=== PATIENT | female | born 1955 ===

== ENCOUNTER 2016-10-03 19:14 | Emergency (ER) | payer OTHER ==
[2016-10-03 19:26] VITALS: TEMP 98.6; BMI 33.3
[2016-10-03] MEDS ORDERED: Sodium Chloride 0.9% 1,000 ML IV STA (19:32)
--- NOTE | 2016-10-03 19:32 | ED PDOC ---
"Arrival/HPI - General Chief Complaint: Back Pain Time Seen by Provider: 10/03/16 19:27 Historian: Patient - History of Present Illness Narrative History of Present Illness (Text): 10/03/16 19:28 61 y/o female, pmh including lower back pain/gastritis which she is on the prilosec, c/o lt. sided back pain x 4 days. Pt. stated that she has lt. sided back pain, aggravated by movement, no pain medication taken at home, been having nausea with no vomiting but started to have the lt. upper quadrant abdominal pain as well, no night sweat, no rash, no urinary symptoms, no numbness or tingling, no other medical or psychological complaints. Past Medical History - Provider Review Nursing Documentation Reviewed: Yes - Infectious Disease Hx of Infectious Diseases: None - Pulmonary Hx Asthma: Yes - Psychiatric Hx Substance Use: No - Surgical History Hx Appendectomy: Yes Hx Cholecystectomy: Yes Other/Comment: gastric by pass - Anesthesia Hx Anesthesia: Yes Hx Anesthesia Reactions: No Family/Social History - Physician Review Nursing Documentation Reviewed: Yes Family/Social History: Unknown Family HX Smoking Status: Never Smoked Hx Alcohol Use: No Hx Substance Use: No Allergies/Home Meds Allergies/Adverse Reactions: Allergies No Known Allergies Allergy (Verified 05/25/16 09:47) Home Medications: Home Meds Medication Instructions Recorded Confirmed Albuterol HFA [Ventolin HFA 90 2 puff IH [id number] 04/30/16 05/25/16 mcg/actuation (8 g)] Review of Systems - Review of Systems Constitutional: absent: Fatigue, Fevers Eyes: absent: Vision Changes ENT: absent: Hearing Changes Respiratory: absent: SOB, Cough Cardiovascular: absent: Chest Pain, Orthopnea Gastrointestinal: Abdominal Pain, Nausea. absent: Vomiting Musculoskeletal: Back Pain. absent: Arthralgias, Neck Pain, Joint Swelling, Myalgias Hemo/Lymphatic: absent: Adenopathy, Easy Bleeding, Easy Bruising Physical Exam Vital Signs Reviewed: Yes Vital Signs Temp Pulse Resp BP Pulse Ox 10/03/16 19:30 98.6 F 89 18 99 10/03/16 19:22 98.6 F 99 H 20 149/87 98 Temperature: Afebrile Blood Pressure: Normal Pulse: Regular Respiratory Rate: Normal Appearance: Positive for: Well-Appearing, Non-Toxic Pain Distress: Severe Mental Status: Positive for: Alert and Oriented X 3 - Systems Exam Head: Present: Atraumatic, Normocephalic Pupils: Present: PERRL Extroacular Muscles: Present: EOMI Conjunctiva: Present: Normal Mouth: Present: Moist Mucous Membranes Neck: Present: Normal Range of Motion Respiratory/Chest: Present: Clear to Auscultation, Good Air Exchange. No: Respiratory Distress, Accessory Muscle Use Cardiovascular: Present: Regular Rate and Rhythm, Normal S1, S2. No: Murmurs Abdomen: Present: Normal Bowel Sounds. No: Tenderness, Distention, Peritoneal Signs, Rebound, Guarding Back: Present: Normal Inspection, CVA Tenderness (+lt. cva tenderness). No: Midline Tenderness, Paraspinal Tenderness Upper Extremity: Present: Normal Inspection. No: Cyanosis, Edema Lower Extremity: Present: Normal Inspection. No: Edema Neurological: Present: GCS=15, Speech Normal, Motor Func Grossly Intact, Gait Normal, Memory Normal Skin: Present: Warm, Dry, Normal Color. No: Rashes Psychiatric: Present: Alert, Oriented x 3, Normal Insight, Normal Concentration Medical Decision Making ED Course and Treatment: 10/03/16 19:38 -labs/ua/cardiac enzyme -CT abdomen/pelvis -EKG -IVF/toradol/pepcid -Observe and reassess 10/03/16 22:07 -EKG: SR @ 94 BPM, no ST elevation or depression, no T wave inversion, compared with previous ekg. -CT abdomen and pelvis show: -Labs show no acute findings except potassium 3.5, potassium chloride 20meq po ordered. Troponin negative with negative acute changes for ekg. -UA show +UTI, IV rocephin ordered. -Patient feels better, pain resolved, no cardiopulmonary complaints. -Discharge home with keflex, tylenol, pepcid, stay hydrated, bed rest, follow up with your own pmd and GI within 2 days, return to the ER for any new or worsening signs or symptoms. - Lab Interpretations Lab Results: 10/03/16 19:50 10/03/16 19:50 Lab Results 10/03/16 21:40: Urine Color Straw, Urine Appearance Sl cloudy, Urine pH 6.5, Ur Specific [place] <= 1.005, Urine Protein Trace H, Urine Glucose (UA) Negative, Urine Ketones Negative, Urine Blood Small H, Urine Nitrate Positive H, Urine Bilirubin Negative, Urine Urobilinogen 0.2, Ur Leukocyte Esterase Negative 10/03/16 19:50: Sodium 136, Potassium 3.5 L, Chloride 101, Carbon Dioxide 27, Anion Gap 12, BUN 21, Creatinine 0.8, Est GFR ( Amer) > 60, Est GFR (Non- Af Amer) > 60, Random Glucose 114 H, Calcium 9.7, Total Bilirubin 0.6, AST 21, ALT 14, Alkaline Phosphatase 103, Lactate Dehydrogenase 389, Total Creatine Kinase 61, Troponin I < 0.01, Total Protein 7.0, Albumin 3.9, Globulin 3.1, Albumin/Globulin Ratio 1.3, Lipase 85 10/03/16 19:50: WBC 11.9 H D, RBC 4.40, Hgb 11.7 L, Hct 36.6, MCV 83.2, MCH 26.6 , MCHC 32.0, RDW 17.1 H, Plt Count 291, MPV 11.5 H, Gran % 78.0 H, Lymph % (Auto ) 15.4 L, Clare % (Auto) 6.4 H, Eos % (Auto) 0.1 L, Baso % (Auto) 0.1, Gran # 9.32 H, Lymph # 1.8, Clare # 0.8 H, Eos # 0.0, Baso # 0.01 I have reviewed the lab results: Yes Interpretation: Abnormal lab values (K+ 3.5, UA + UTI, wbc 11.9) - RAD Interpretation Radiology Orders: 10/03/16 19:37 ABDOMEN & PELVIS [ABD & PELVIS IV CONTRAST ONLY] [CT] Stat ABDOMEN: Liver: Small probable cysts in the liver. Gallbladder and bile ducts: Cholecystectomy. No ductal dilation. Pancreas: Unremarkable. No mass. No ductal dilation. Spleen: Unremarkable. No splenomegaly. Adrenals: Unremarkable. No mass. Kidneys and ureters: Unremarkable. No solid mass. No hydronephrosis. Stomach and bowel: Postop changes gastric bypass. No obstruction. No mucosal thickening. Appendix: Appendectomy. PELVIS: Bladder: Unremarkable. No mass. ADOLFO VIVAR | Preliminary Radiology Report PART TIME (QA) DISCREPANCY? If there is a discrepancy between the preliminary and final interpretation, please notify [facility] via [email or web address]. If you do not have access to our QA portal, call our QA team at [phone] CONFIDENTIALITY STATEMENT This report is intended only for the use of the referring physician, and only in accordance with law, If you received this in error, call [phone] Page 2 of 2 Reproductive: Hysterectomy. ABDOMEN and PELVIS: Intraperitoneal space: Unremarkable. No free air. No significant fluid collection. Bones/joints: No acute fracture. No dislocation. Soft tissues: Unremarkable. Vasculature: Unremarkable. No abdominal aortic aneurysm. Lymph nodes: Unremarkable. No enlarged lymph nodes. IMPRESSION: No acute findings. Thank you for allowing us to participate in the care of your patient. Dictated and Authenticated by: Maciel Rascon MD 10/03/2016 9:27 PM Eastern Time ([place] & [place]) Soldering Technician: Radiologist - EKG Interpretation EKG Interpretation (Text): 10/03/16 19:54 SR @ 94 BPM, no ST elevation or depression, no T wave inversion, compared with previous ekg. Interpreted by ED Physician: Yes Type: 12 lead EKG Comparison: Com.w/previous EKG - Medication Orders Current Medication Orders: Discontinued Medications Famotidine (Pepcid) 20 mg IVP STAT STA Stop: 10/03/16 19:34 Last Admin: 10/03/16 20:03 Dose: 20 mg Sodium Chloride (Sodium Chloride 0.9%) 1,000 mls @ 999 mls/hr IV .Q1H1M STA Stop: 10/03/16 20:32 Last Admin: 10/03/16 20:05 Dose: 999 mls/hr Iohexol (Omnipaque 350 100 Ml) Confirm Administered Dose 350 mg .ROUTE .STK-MED ONE Stop: 10/03/16 20:29 Ketorolac Tromethamine (Toradol) 30 mg IVP STAT STA Stop: 10/03/16 19:33 Last Admin: 10/03/16 20:02 Dose: 30 mg Potassium Chloride (K-Dur 20 Meq Er Tab) 20 meq PO STAT STA Stop: 10/03/16 21:34 - PA / 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 Disposition/Present on Arrival - Present on Arrival Any Indicators Present on Arrival: No History of DVT/PE: No History of Uncontrolled Diabetes: No Urinary Catheter: No History of Decub. Ulcer: No History Surgical Site Infection Following: None - Disposition Have Diagnosis and Disposition been Completed?: Yes Diagnosis: Hypokalemia, Back pain, UTI (urinary tract infection) Disposition: HOME/ ROUTINE Disposition Time: 21:37 Patient Plan: Discharge Patient Problems: Current Active Problems Problem Status Onset Back pain Acute Hypokalemia Acute Condition: IMPROVED Additional Instructions: Discharge home with keflex, tylenol, pepcid, stay hydrated, bed rest, follow up with your own pmd and GI within 2 days, return to the ER for any new or worsening signs or symptoms. Prescriptions: Acetaminophen [Tylenol 325mg tab] 2 tab PO QID PRN #30 tab PRN Reason: Other Cephalexin [cephalexin] 500 mg PO QID #28 cap Famotidine [Pepcid] 20 mg PO BID #20 tab Referrals: Brandon Gay MD [Medical Doctor] - Follow up with primary Forms: WORK NOTE"
[2016-10-03 20:03] LABS: ADD MANUAL DIFF? NO
[2016-10-03 20:10] LABS: BASO # 0.01 K/mm3 (0.0-2.0); BASO % 0.1 % (0.0-3.0); EOS % 0.1 % (1.5-5.0); GRAN # 9.32 (1.4-6.5); HEMATOCRIT 36.6 % (36.0-48.0); LYMPH # 1.8 (1.2-3.4); LYMPH % 15.4 % (22.0-35.0); MEAN CELL VOLUME 83.2 fL (80.0-105.0); MEAN CORPUSCULAR HEMOGLOBIN 26.6 pg (25.0-35.0); MEAN PLATELET VOLUME 11.5 fl (7.0-11.0); MONO # 0.8 (0.1-0.6); MONO % 6.4 % (1.0-6.0); PLATELET COUNT 291 10^3/uL (120.0-450.0); RED CELL DISTRIBUTION WIDTH 17.1 % (11.5-14.5); WHITE BLOOD COUNT 11.9 10^3/ul (4.5-11.0)
[2016-10-03 20:16] LABS: ALB/GLOB RATIO 1.3 (1.1-1.8); ALKALINE PHOSPHATASE 103 U/L (38-133); ALT/SGPT 14 U/L (7-56); AST/SGOT 21 U/L (15-39); BILIRUBIN,TOTAL 0.6 mg/dL (0.2-1.3); BLOOD UREA NITROGEN 21 mg/dL (7-21); CALCIUM 9.7 mg/dL (8.4-10.5); CARBON DIOXIDE 27 mmol/L (21-33); CHLORIDE 101 mmol/L (98-107); GFR AFRICAN-AMERICAN > 60; GLUCOSE,RANDOM 114 mg/dL (70-110); LIPASE 85 U/L (23-300); POTASSIUM 3.5 mmol/L (3.6-5.0); SODIUM 136 mmol/L (132-148)
[2016-10-03] MEDS ORDERED: Iohexol 350 MG/100 ML VIAL ONE (20:28)
[2016-10-03 20:29] LABS: TROPONIN I < 0.01 ng/mL
[2016-10-03] MEDS ORDERED: Potassium Chloride 20 mEq ER Tab PO STA (21:33)
[2016-10-03 22:03] LABS: PH,URINE 6.5 (4.7-8.0); URINE APPEARANCE SL CLOUDY (CLEAR); URINE BILIRUBIN NEGATIVE (NEGATIVE); URINE BLOOD SMALL (NEGATIVE); URINE COLOR STRAW (YELLOW); URINE GLUCOSE (UA) NEGATIVE (NEGATIVE); URINE KETONE NEGATIVE (NEGATIVE); URINE LEUKOCYTE ESTERASE NEGATIVE Leu/uL (NEGATIVE); URINE PROTEIN TRACE mg/dL (<30 mg/dL); URINE UROBILINOGEN 0.2 E.U./dL (<1 E.U./dL)
[2016-10-03] MEDS ORDERED: cefTRIAXone 1 gm 1 GM/100 ML BAG IVPB STA (22:06)
[2016-10-03 22:16] LABS: URINE CALCIUM OXALATE CRYSTALS FEW /hpf; URINE EPITHELIAL CELLS 0 - 2 /hpf (0-5); URINE RBC 0 - 2 /hpf (0-2); URINE WBC 0 - 2 /hpf (0-6)
[2016-10-03 22:17] LABS: URINE BACTERIA MANY (NEG)
[2016-10-03 22:27] VITALS: RESP 16; O2SAT 98
[2016-10-03 23:39] VITALS: BP 122/73; PULSE 73
--- NOTE | 2016-10-04 09:33 | CT ---
PROCEDURE: CT Abdomen and Pelvis with contrast HISTORY: Left back/upper abdominal pain COMPARISON: 05/25/2016 TECHNIQUE: CT scan of the abdomen and pelvis was performed after intravenous administration of contrast. Oral contrast was not administered. Coronal and sagittal reformatted images were obtained. Contrast dose: 95 mL Omnipaque 350. Radiation dose: Total exam DLP = 1002.42 mGy-cm. This CT exam was performed using one or more of the following dose reduction techniques: Automated exposure control, adjustment of the mA and/or kV according to patient size, and/or use of iterative reconstruction technique. FINDINGS: LOWER THORAX: The right lung base is clear. There is a stable 6 mm subpleural nodule/pleural scar in the left lateral lung base. LIVER: The liver is normal in size and there is homogeneous enhancement. There are scattered simple cysts in the liver, the largest in the right hepatic lobe measures 13 mm. No intrahepatic biliary ductal dilatation. GALLBLADDER AND BILE DUCTS: Surgically absent. PANCREAS: The pancreas is normal in size and there is homogeneous enhancement without focal mass or ductal dilatation. SPLEEN: The spleen is normal in size and there is homogeneous enhancement without focal mass. ADRENALS: Both adrenal glands are normal in size without discrete nodule. KIDNEYS AND URETERS: Both kidneys are normal in size and there is homogeneous enhancement without hydronephrosis or focal mass. VASCULATURE: No aortic aneurysm. BOWEL: The small bowel loops are normal in caliber. Status post gastric bypass surgery. The colon is decompressed. APPENDIX: Surgically absent. PERITONEUM: No free fluid. No free air. LYMPH NODES: No enlarged lymph nodes. BLADDER: Grossly normal in appearance. REPRODUCTIVE: Surgically absent. BONES: No acute fracture. Mild multilevel degenerative disc disease in the lower thoracic spine. OTHER FINDINGS: There is a small fat containing umbilical hernia. There is a small sliding hiatal hernia. IMPRESSION: No acute findings. Stable 6 mm subpleural nodule/scar in the left lung base. In a high-risk patient, follow-up CT scan 6-12 months interval is recommended to assess stability. . A preliminary report was provided by [facility].
--- NOTE | 2016-10-04 23:57 | CARD ---
APPROVED REPORT EKG Measurement Heart [id number] <Conclusion> Sinus rhythm with premature atrial complexes Nonspecific ST abnormality Abnormal ECG
== END 2016-10-03 23:39 | disposition home or self-care (01) ==
LOC: ED 19:14
DX: N39.0 Urinary tract infection, site not specified (principal); E87.6 Hypokalemia; M54.9 Dorsalgia, unspecified
CPT/HCPCS: 74177; 80053; 81001; 82550; 83615; 83690; 84484; 85025; 93005; 96374; 96375; 99283; J0696; J1885; J7040; Q9967

== ENCOUNTER 2018-06-25 08:35 | Emergency (ER) | payer OTHER ==
[2018-06-25 08:42] VITALS: BMI 30.2
[2018-06-25 08:46] VITALS: RESP 18; TEMP 98.6
[2018-06-25] MEDS ORDERED: Sodium Chloride 0.9% 1,000 ML IV ONE (08:58)
[2018-06-25] MEDS ORDERED: Morphine 2 mg/ml ISec IVP STA (09:02)
--- NOTE | 2018-06-25 09:40 | ED PDOC ---
Arrival/HPI - General Chief Complaint: Abdominal Pain Historian: Patient - History of Present Illness Narrative History of Present Illness (Text): 06/25/18 09:36 Adolfo Vivar is a 63 year old female, with past history of gastric bypass, hysterectomy, appendectomy, and cholecystectomy, who presents to the emergency department complaining of sudden epigastric pain since last night. Patient notes "foamy" vomit. Patient's last bowel movement was yesterday and has 1 bowel movement per day. Patient is unable to tolerate food and has decreased appetite. Patient denies diarrhea, bloody vomit, lower abdominal pain, urinary or bowel changes, fevers, chills, or any other complaint. Time/Duration: 24 hours Symptom Onset: Sudden Symptom Course: Unchanged Activities at Onset: Light Context: Home Past Medical History - Provider Review Nursing Documentation Reviewed: Yes - Infectious Disease Hx of Infectious Diseases: None - Reproductive Menopause: Yes - Cardiac Hx Cardiac Disorders: No - Pulmonary Hx Respiratory Disorders: Yes Hx Asthma: Yes - Gastrointestinal Hx Gastroesophageal Reflux: Yes - Psychiatric Hx Substance Use: No - Surgical History Hx Appendectomy: Yes Hx Cholecystectomy: Yes Other/Comment: gastric by pass - Anesthesia Hx Anesthesia: Yes Hx Anesthesia Reactions: No Hx Malignant Hyperthermia: No Family/Social History - Physician Review Nursing Documentation Reviewed: Yes Family/Social History: Unknown Family HX Smoking Status: Never Smoked Hx Alcohol Use: No Hx Substance Use: No Allergies/Home Meds Allergies/Adverse Reactions: Allergies No Known Allergies Allergy (Verified 06/25/18 08:46) Home Medications: Home Meds Medication Instructions Recorded Confirmed Albuterol HFA [Ventolin HFA 90 2 puff IH [id number] 04/30/16 05/25/16 mcg/actuation (8 g)] Review of Systems - Physician Review All systems were reviewed & negative as marked: Yes - Review of Systems Constitutional: absent: Fevers, Night Sweats Gastrointestinal: Abdominal Pain (epigastric pain), Vomiting (described as "foamy"), Food Intolerance. absent: Stool Changes (no bowel changes), Diarrhea, Hematemesis, Other (no lower abdominal pain) Genitourinary Female: absent: Frequency, Urine Output Changes Physical Exam - Physical Exam Narrative Physical Exam (Text): 06/25/18 09:36 General: Pt writhing in pain. Vital Signs Reviewed: Yes Vital Signs Temp Pulse Resp BP Pulse Ox 06/25/18 08:42 98.6 F 70 18 128/76 96 Temperature: Afebrile Blood Pressure: Normal Pulse: Regular Respiratory Rate: Normal Appearance: Positive for: Well-Appearing, Non-Toxic, Comfortable Pain Distress: None Mental Status: Positive for: Alert and Oriented X 3 - Systems Exam Head: Present: Atraumatic, Normocephalic Pupils: Present: PERRL Extroacular Muscles: Present: EOMI Conjunctiva: Present: Normal Mouth: Present: Moist Mucous Membranes Neck: Present: Normal Range of Motion Respiratory/Chest: Present: Clear to Auscultation, Good Air Exchange. No: Respiratory Distress, Accessory Muscle Use Cardiovascular: Present: Regular Rate and Rhythm, Normal S1, S2. No: Murmurs Abdomen: Present: Tenderness (epigastric tenderness to palpation). No: Distention, Peritoneal Signs, Rebound, Guarding Skin: Present: Warm, Dry, Normal Color. No: Rashes Psychiatric: Present: Alert, Oriented x 3, Normal Insight, Normal Concentration Medical Decision Making ED Course and Treatment: 06/25/18 09:36 Impression: Patient is a 63 year old female who presents to the emergency department complaining of sudden epigastric pain since 1 day. Patient informs of vomiting. Differential Diagnosis included but are not limited to: Plan: - CT a/p with IV contrast -- EKG -- Labs -- Urine Culture -- Urinalysis -- Pepcid -- Zofran Inj. -- IV Fluids -- Morphine -- Reassess and disposition Prior Visits: Notes and results from previous visits were reviewed. Progress Notes: - RAD Interpretation Radiology Orders: 06/25/18 09:01 ABD & PELVIS IV CONTRAST ONLY [CT] Stat - Medication Orders Current Medication Orders: Sodium Chloride (Sodium Chloride 0.9%) 1,000 mls @ 250 mls/hr IV .Q4H ONE Stop: 06/25/18 12:57 Last Admin: 06/25/18 09:26 Dose: 250 mls/hr eMAR Start Stop Document 06/25/18 09:26 COLLEEN (Rec: 06/25/18 09:26 COLLEEN [id number]) Intravenous Solution Start Date 06/25/18 Start Time 09:26 Discontinued Medications Famotidine (Pepcid) 20 mg IVP STAT STA Stop: 06/25/18 08:59 Last Admin: 03/13/19 09:25 Dose: 20 mg IVP Administration Document 06/25/18 09:25 [facility] (Rec: 06/25/18 09:25 [id number] Charges for Administration # of IVP Administrations 1 Morphine Sulfate (Morphine) 2 mg IVP STAT STA Stop: 06/25/18 09:03 Last Admin: 06/25/18 09:25 Dose: 2 mg MAR Pain Assessment Document 06/25/18 09:25 [facility] (Rec: 06/25/18 09:25 [id number] Pain Reassessment Is this a pain reassessment? No Sleep Is patient sleeping during reassessment? No Presence of Pain Presence of Pain Yes IVP Administration Document 06/25/18 09:25 [facility] (Rec: 06/25/18 09:25 [id number] Charges for Administration # of IVP Administrations 1 Ondansetron HCl (Zofran Inj) 4 mg IVP STAT STA Stop: 06/25/18 08:59 Last Admin: 06/25/18 09:25 Dose: 4 mg IVP Administration Document 06/25/18 09:25 [facility] (Rec: 06/25/18 09:25 [id number] Charges for Administration # of IVP Administrations 1 - Scribe Statement The provider has reviewed the documentation as recorded by the Scribe Kristofer Rowe All medical record entries made by the Scribe were at my direction and personally dictated by me. I have reviewed the chart and agree that the record accurately reflects my personal performance of the history, physical exam, me dical decision making, and the department course for this patient. I have also personally directed, reviewed, and agree with the discharge instructions and disposition. Disposition/Present on Arrival - Present on Arrival Any Indicators Present on Arrival: No History of DVT/PE: No History of Uncontrolled Diabetes: No Urinary Catheter: No History of Decub. Ulcer: No History Surgical Site Infection Following: None - Disposition Have Diagnosis and Disposition been Completed?: Yes Diagnosis: Abdominal pain, UTI (urinary tract infection) Disposition: HOME/ ROUTINE Disposition Time: 12:10 Condition: IMPROVED Discharge Instructions (ExitCare): Urinary Tract Infections in Adults, Acute Abdomen (Belly Pain), Adult (DC) Additional Instructions: ADOLFO VIVAR, thank you for letting us take care of you today. Your provider was Kristofer Lopes DO and you were treated for abdominal pain. The emergency medical care you received today was directed at your acute symptoms. If you were prescribed any medication, please fill it and take as directed. It may take several days for your symptoms to resolve. Return to the Emergency Department if your symptoms worsen, do not improve, or if you have any other problems. Please contact your doctor or call one of the physicians/clinics you have been referred to that are listed on the Patient Visit Information form that is included in your discharge packet. Bring any paperwork you were given at discharge with you along with any medications you are taking to your follow up visit. Our treatment cannot replace ongoing medical care by a primary care provider outside of the emergency department. Thank you for allowing the [facility] team to be part of your care today. Follow up with your primary care doctor in 3-5 days for re-evaluation and further management. Prescriptions: Ondansetron ODT [Zofran ODT] 8 mg PO Q8 PRN #20 odt PRN Reason: Nausea/Vomiting Sulfamethoxazole/Trimethoprim [Bactrim DS 800 mg-160 mg] 1 tab PO BID #14 tab Referrals: FAMILY PROVIDER,NO [Primary Care Provider] - Follow up with primary Forms: [employer] (Danish)
[2018-06-25 10:20] LABS: HEMOGLOBIN 10.2 g/dL (12.0-16.0); LYMPH # 0.8 (1.2-3.4); LYMPH % 10.2 % (22.0-35.0); MEAN CELL VOLUME 81.2 fl (80.0-105.0); MEAN CORPUSCULAR HEMOGLOBIN 23.9 pg (25.0-35.0); MEAN CORPUSCULAR HGB CONC 29.5 g/dl (31.0-37.0); MEAN PLATELET VOLUME 11.4 fl (7.0-11.0); MONO # 0.2 (0.1-0.6); MONO % 1.9 % (1.0-6.0); RBC 4.26 10^6/uL (3.5-6.1); RED CELL DISTRIBUTION WIDTH 19.4 % (11.5-14.5); WHITE BLOOD COUNT 8.1 10^3/uL (4.5-11.0)
[2018-06-25 10:28] LABS: ALB/GLOB RATIO 1.3 (1.1-1.8); ALBUMIN 4.1 g/dL (3.0-4.8); ALT/SGPT 6 U/L (7-56); AMYLASE 79 U/L (35-125); AST/SGOT 24 U/L (14-36); BLOOD UREA NITROGEN 7 mg/dL (7-21); CALCIUM 9.8 mg/dL (8.4-10.5); GFR NON-AFRICAN AMERICAN > 60; LIPASE 97 U/L (23-300)
[2018-06-25 10:39] LABS: TROPONIN I < 0.01 ng/mL
[2018-06-25] MEDS ORDERED: Iohexol 350 MG/100 ML VIAL ONE (10:42)
[2018-06-25 10:55] LABS: PH,URINE 7.5 (4.7-8.0); URINE BILIRUBIN NEGATIVE (NEGATIVE); URINE BLOOD TRACE-INTACT (NEGATIVE); URINE GLUCOSE (UA) NEGATIVE (NEGATIVE); URINE LEUKOCYTE ESTERASE NEGATIVE Leu/uL (NEGATIVE); URINE PROTEIN NEGATIVE mg/dL (<30 mg/dL); URINE UROBILINOGEN 0.2 E.U./dL (<1 E.U./dL)
[2018-06-25 10:56] LABS: URINE APPEARANCE CLEAR (CLEAR); URINE COLOR YELLOW (YELLOW)
[2018-06-25 11:03] LABS: URINE AMORPHOUS SEDIMENT FEW /hpf; URINE BACTERIA MANY /hpf; URINE WBC 0 - 2 /hpf (0-6)
--- NOTE | 2018-06-25 12:01 | CT ---
Date of service: 06/25/2018 PROCEDURE: CT abdomen pelvis HISTORY: Epigastric pain h/o gastric bypass/luz elena/appy COMPARISON: Comparison made with prior CT scan dated 05/25/[address] scan 04/30/2016. TECHNIQUE: Contiguous axial images of the abdomen and pelvis. Oral contrast was administered. No IV contrast given. Coronal and Sagittal reformats generated. Radiation dose: Total exam DLP = 688.15 mGy-cm. This CT exam was performed using one or more of the following dose reduction techniques: Automated exposure control, adjustment of the mA and/or kV according to patient size, and/or use of iterative reconstruction technique. FINDINGS: LOWER THORAX: Heart size borderline/mildly enlarged. No significant pericardial effusion. Redemonstrated is a small approximately 7 mm pleural based nodule left lung base along lateral sulcus centrally unchanged from prior study appears likely postinflammatory. Continued follow-up could be performed assess stability. LIVER: Liver exhibits normal size measuring nearly 16 cm in CC dimension. Mild diffuse fatty hepatic infiltration. Redemonstrated are multiple small left and right lobes measuring approximately 12 mm x 7 mm and 14.8 x 7.3 mm respectively. These foci too small to characterize though could represent small cysts and do appear relatively stable since prior exam. Portal and splenic veins are opacified. GALLBLADDER AND BILE DUCTS: Cholecystectomy. PANCREAS: Pancreas is slightly atrophic. No obvious pancreatic masses collections or calcifications. SPLEEN: Unremarkable. No splenomegaly. ADRENALS: Left adrenal gland is slightly enlarged and nodular in appearance unchanged from prior KIDNEYS AND URETERS: Kidneys demonstrate symmetric nephrograms. No evidence of nephrolithiasis or hydronephrosis. BLADDER: Study urinary bladder is incompletely distended which in part accounts for slight thick-walled appearance. Correlation with urinalysis recommended to exclude cystitis REPRODUCTIVE: Hysterectomy APPENDIX: Changes of appendectomy again noted. BOWEL: Postoperative changes gastric bypass again noted.. There are a few minimally prominent fluid-filled loops of small bowel in the right abdomen that are nonspecific although could represent mild ileus. No evidence of acute mechanical small bowel obstruction. Questionable mild submucosal fat deposition within the wall of the terminal ileum. Findings could represent chronic inflammatory sequela however possibility of some mild wall edema inflammation not completely excluded on this exam. Clinical correlation recommended. The large-bowel, for the most part, is relatively incompletely distended. No definitive abnormal mural wall thickening of the colon seen. PERITONEUM: Unremarkable. No fluid collection. No free air. Small fat containing umbilical hernia. LYMPH NODES: Few small nonspecific mesenteric lymph nodes are present VASCULATURE: Unremarkable. No aortic aneurysm. No aortic atherosclerotic calcification or mural plaque present. BONES: Mild multilevel degenerative spondylosis of the lower thoracic and lumbar spine. OTHER FINDINGS: None. IMPRESSION: Fatty hepatic infiltration. There are several low-attenuation foci within the hepatic parenchyma too small to characterize although unchanged from prior study. Cholecystectomy. Postoperative changes of gastric bypass. Findings also suggest mild localized ileus. Questionable submucosal fat deposition within the wall of the ileum versus mild edema. Clinical correlation recommended. Hysterectomy. Mild wall thickening of the urinary bladder likely due to incomplete distention however correlation with urinalysis recommended to exclude cystitis. Stable appearing approximately 7 mm pleural based nodule left lateral sulcus essentially unchanged from prior exam
[2018-06-25 13:04] VITALS: BP 128/73; PULSE 76; O2SAT 100
--- NOTE | 2018-06-25 16:49 | CARD ---
APPROVED REPORT Date of service: 06/25/2018 EKG Measurement Heart [id number] 130P89 [id number] <Conclusion> Normal sinus rhythm with sinus arrhythmia Normal ECG
== END 2018-06-25 13:15 | disposition home or self-care (01) ==
LOC: ED 08:35
DX: N39.0 Urinary tract infection, site not specified (principal); R10.13 Epigastric pain
CPT/HCPCS: 74177; 80053; 81001; 82150; 82550; 83615; 83690; 83735; 84484; 85025; 87086; 93005; 96374; 96375; 99283; J2270; J2405; J7030; Q9967